=== PATIENT | female | born 1955 | race Caucasian/White ===

== ENCOUNTER → 2018-07-04 14:18 | Outpatient (CLI) | payer BC, SELFPAY ==
--- NOTE | 2018-07-04 | DI.RAD.S_ITS ---
PROCEDURE: XR ANKLE LT MIN 3V INDICATIONS: LEFT ankle and foot pain TECHNIQUE: 3 views of the ankle were acquired. COMPARISON: None. FINDINGS: Bones: No fractures or dislocations. Ankle mortise is normally aligned. No suspicious bony lesions. Well-defined plantar calcaneal enthesophyte is seen. Soft tissues: No tibiotalar joint effusion. Achilles tendon appears normal. Mild soft tissue swelling around ankle joint is seen. IMPRESSION: Mild ankle soft tissue swelling. No fracture or dislocation. Ankle mortise is intact. Dictated by: Syed Wright M.D. on 07/04/2018 at 15:39 Approved by: Syed Wright M.D. on 07/04/2018 at 15:45
--- NOTE | 2018-07-04 | DI.RAD.S_ITS ---
PROCEDURE: XR FOOT LT MIN 3V INDICATIONS: TWISTED ANKLE FOOT PAIN TECHNIQUE: 3 views of the foot were acquired. COMPARISON: None. FINDINGS: Bones: No fractures or dislocations. No suspicious bony lesions. Mild osteoarthritic changes throughout interphalangeal joints are seen. Small plantar calcaneal enthesophyte is seen. Soft tissues: No tibiotalar joint effusion. Achilles tendon appears normal. IMPRESSION: No acute left foot fracture or dislocation. Mild forefoot joint osteoarthritis. Dictated by: Syed Wright M.D. on 07/04/2018 at 15:45 Approved by: Syed Wright M.D. on 07/04/2018 at 15:47
== END ==
PROVIDERS: Visit Provider Internal Medicine Cardiovascular Disease
DX: M25.572 Pain in left ankle and joints of left foot (principal); S99.812A Other specified injuries of left ankle, initial encounter; M79.672 Pain in left foot; M25.472 Effusion, left ankle; M19.072 Primary osteoarthritis, left ankle and foot
CPT/HCPCS: 73610; 73630

== ENCOUNTER → 2019-12-09 14:42 | Outpatient (CLI) | payer OTHER, SELFPAY ==
[2019-12-09 15:14] LABS: Add Manual Diff / Slide Review NO; Basophils Absolute Auto 100 /uL (0-100); Basophils Percent Auto 1.1 % (0-2); Eosinophils Absolute Auto 100 /uL (0-450); Eosinophils Percent Auto 2.2 % (2-4); Hematocrit 41.3 % (36-46); Hemoglobin 14.3 g/dL (12.0-16.0); Lymphocytes Absolute Auto 1100 /uL (1100-4500); Lymphocytes Percent Auto 19.3 % (25-40); Mean Corpuscular HGB Conc 34.5 % (30-36); Mean Corpuscular Hemoglobin 30.9 PG (26-34); Mean Corpuscular Volume 89.5 fL (80-100); Monocytes Absolute Auto 300 /uL (0-900); Monocytes Percent Auto 5.4 % (3-14); Neutrophils Absolute Auto 4300 /uL (1500-7000); Platelet Count 204 X10^3/uL (150-400); Red Blood Cell Count 4.62 X10^6/uL (4.0-5.2); Red Cell Distribution Width 14.3 % (11.6-14.8); White Blood Cell Count 5.9 X10^3/uL (4.5-11.0)
[2019-12-09 15:30] LABS: Alanine Aminotransferase 29 IU/L (<35); Albumin 4.6 g/dL (3.5-5.0); Albumin Globulin Ratio 1.4 (1.0-2.8); Alkaline Phosphatase 107 U/L (38-126); Aspartate Aminotransferase 43 IU/L (14-36); Bilirubin Total 0.7 mg/dL (0.2-1.3); Blood Urea Nitrogen 21 mg/dL (7-17); Calcium 9.9 mg/dL (8.4-10.2); Carbon Dioxide 22 mmol/L (22-32); Chloride 102 mmol/L (98-107); Cholesterol 265 mg/dL (140-199); Estimated Glomerular Filt Rate 55.6 mL/min (>60); Globulin 3.2 g/dL (1.7-4.1); Glucose 234 mg/dL (80-110); HDL Cholesterol 46 mg/dL (40-60); HEMOLYSIS < 15 (0-50); LDL Cholesterol Calculated 152 mg/dL (<100); Potassium 4.6 mmol/L (3.4-5.1); Sodium 137 mmol/L (137-145); Total Protein 7.8 g/dL (6.3-8.2); Triglycerides 337 mg/dL (35-150)
[2019-12-09 16:20] LABS: TSH w/ Reflex to FT4 1.44 uIU/mL (0.47-4.68)
[2019-12-11 10:02] LABS: Hemoglobin A1C% w Est Avg Glu 9.4 % (4.0-6.0)
== END ==
PROVIDERS: PCP Student in an Organized Health Care Education/Training Program; Referring Provider Student in an Organized Health Care Education/Training Program; Visit Provider Student in an Organized Health Care Education/Training Program
DX: I10 Essential (primary) hypertension (principal); E03.9 Hypothyroidism, unspecified; E11.40 Type 2 diabetes mellitus with diabetic neuropathy, unspecified; E78.5 Hyperlipidemia, unspecified; E11.10 Type 2 diabetes mellitus with ketoacidosis without coma
CPT/HCPCS: 36415; 80053; 80061; 83036; 84443; 85025

== ENCOUNTER → 2020-03-11 14:20 | Outpatient (CLI) | payer OTHER, SELFPAY ==
--- NOTE | 2020-03-11 15:48 | DIET.PN ---
Diabetes Intake: Initial Assessment Assess: Ms. Loja is a 64 YOF referred for type 2 diabetes. She reports long standing hx (30yrs). She has been experiencing symptoms related to diabetes including fatigue, blurred vision, extreme peripheral neuropathy, mood swings. Her weight has been up and down for several years. She admits she does not believe diabetes is serious. She has tried changing her diet and exercising for weight loss and glucose control but gets discouraged with minimal results. She does not exercise due to chronic foot pain. She admits she does not follow healthful eating patterns consuming fast food breakfast sandwiches, often skipping lunch, eating whatever her father prepares for dinner and snacking on starchy/sugary foods in the evening. Labs: Per pt report: A1c: 9.4 FB Meds: repaglinide BID; lantus 50u am/pm; gabapentin for neuropathy Diet: per 24 hr recall: B: brkfst sandwich (fast food) L: none D: hot meal from home Evening Snks: chips, popcorn, candy Wt: 265lb Ht: 66in BMI: 42.8 DX: Altered nutrition related laboratory values related to impaired glucose metabolism, lack of previous exposure to nutrition information as evidenced by pt report, diagnosis of diabetes, previous diet high in refined carbohydrates. Intervention: 1. Completed intake assessment. Discussed barriers to care. 2. Discussed pathophysiology of diabetes. Reviewed A1c and its correlation to blood glucose numbers. Discussed recommended BG ranges. 3. Discussed importance of self-monitoring, how often, and when to check. 4. Reviewed hyper/hypoglycemia and treatment. 5. Provided ?snacking under 200 giovanna? list 6. Reviewed safe disposal of equipment (strip/lancets/insulin needles). 7. Created SMART goals for pt self-care and success. 8. Discussed program curriculum outline and class needs based on individual goals. SMART Goals: 1. Pt would like to lose 15lb (5% weight loss) in the next 3 mo through portion control, carb consistency, and increased physical activity. Monitor/Evaluate: Anticipate fair compliance. Pt will attend full DSME program. Basic Nutrition class scheduled for Mar 30. Pt authorized for 3 visits.
== END ==
PROVIDERS: PCP Student in an Organized Health Care Education/Training Program; Referring Provider Student in an Organized Health Care Education/Training Program; Visit Provider Student in an Organized Health Care Education/Training Program
DX: E11.9 Type 2 diabetes mellitus without complications (principal); Z79.4 Long term (current) use of insulin
CPT/HCPCS: G0108

== ENCOUNTER → 2020-05-25 14:16 | Outpatient (CLI) | payer OTHER, SELFPAY ==
--- NOTE | 2020-05-25 15:48 | DIET.PN ---
Diabetes: Healthy Eating 1 Intervention: ? Discussed pathophysiology of diabetes and impact of nutrition/diet on blood sugar control.? Discussed fed versus non-fed state.?? ? Reviewed importance of Balance, Variety, and Moderation. ? Discussed the effect of carbohydrates/protein/fat on blood sugar control.? ? Stressed importance of consistent carbohydrate intake at each meal and provided instructions for recommended servings/portions of carbohydrates/protein per meal. Provided educational material. ? Reviewed carbohydrate counting and measuring carbohydrate content via serving sizes and reading nutrition labels.? Provided handouts.?? ? Discussed the difference between simple versus complex carbohydrates and the effect of fiber on blood sugar control.? Discussed various methods to increase fiber content in diet. ? Discussed the plate method for creating more carbohydrate conscious balanced meals. ? Stressed importance of meal timing and not going >4-5 hours between meals. Encouraged adding protein to evening snack to support glucose control overnight. ? Discussed importance of making dietary habits part of lifestyle change.
== END ==
PROVIDERS: PCP Student in an Organized Health Care Education/Training Program; Referring Provider Student in an Organized Health Care Education/Training Program; Visit Provider Student in an Organized Health Care Education/Training Program
DX: E11.9 Type 2 diabetes mellitus without complications (principal); Z71.3 Dietary counseling and surveillance
CPT/HCPCS: G0109

== ENCOUNTER → 2020-06-03 14:23 | Outpatient (CLI) | payer OTHER, SELFPAY ==
--- NOTE | 2020-06-03 16:00 | DIET.PN ---
Diabetes: Healthy Eating 2 Intervention: Fats effects on glucose, weight, heart disease, cholesterol Sat Vs Unsat Protein- animal and plant based options Low, med, high fat meats Sugar substitutes Sodium Health claims Grocery shopping guidelines Eating away from home Alcohol Sick day guidelines Ketone Testing
== END ==
PROVIDERS: PCP Student in an Organized Health Care Education/Training Program; Referring Provider Student in an Organized Health Care Education/Training Program; Visit Provider Student in an Organized Health Care Education/Training Program
DX: E11.9 Type 2 diabetes mellitus without complications (principal); Z71.3 Dietary counseling and surveillance
CPT/HCPCS: G0109

== ENCOUNTER → 2021-10-31 14:51 | Outpatient (CLI) | payer OTHER, SELFPAY ==
--- NOTE | 2021-10-31 14:56 | DI.RAD.S_ITS ---
PROCEDURE: XR SHOULDER RT MIN 2V INDICATIONS: RIGHT SHOULDER PAIN TECHNIQUE: 3 views of the shoulder were acquired. COMPARISON: None. FINDINGS: Bones: No fractures or dislocations. No suspicious bony lesions. Visualized ribs appear intact. Moderate acromioclavicular and severe glenohumeral joint space narrowing with periarticular osteophyte formation. Soft tissues: No suspicious soft tissue calcifications. IMPRESSION: Moderate acromioclavicular and severe glenohumeral joint degeneration. Dictated by: Ruben Mckenzie [facility] Interpreted: Derick Flores MD on 10/31/2021 at 16:27 Transcribed by: YAMILETH on 10/31/2021 at 16:28 Approved by: Derick Flores M.D. on 10/31/2021 at 17:09
== END ==
PROVIDERS: PCP Student in an Organized Health Care Education/Training Program; Referring Provider Student in an Organized Health Care Education/Training Program; Visit Provider Student in an Organized Health Care Education/Training Program
DX: M25.511 Pain in right shoulder (principal); G89.29 Other chronic pain; M19.011 Primary osteoarthritis, right shoulder
CPT/HCPCS: 73030

== ENCOUNTER → 2022-06-01 15:46 | Outpatient (CLI) | payer OTHER, SELFPAY ==
--- NOTE | 2022-06-01 15:47 | DI.MG.S_ITS ---
BILATERAL DIGITAL SCREENING MAMMOGRAM 3D/2D WITH CAD POST LUMPECTOMY: 06/01/2022 CLINICAL: Baseline exam. Routine screening. Personal history of left breast cancer. No prior exams were available for comparison. There are scattered areas of fibroglandular density in both breasts (category b / 25%-50% glandular tissue). Current study was also evaluated with a Computer Aided Detection (CAD) system. There is a round high density asymmetry with a spiculated margin in the left breast anterior depth superior region seen on the mediolateral oblique view only. No other significant masses, calcifications, or other findings are seen in either breast. IMPRESSION: INCOMPLETE: NEEDS ADDITIONAL IMAGING EVALUATION The round high density asymmetry in the left breast is indeterminate. Additional views with possible ultrasound are recommended. This exam was interpreted at Station ID: [id number]. NOTE: For mammograms, a report in lay terms will be sent to the patient. Approximately 15% of breast malignancies will not be visualized mammographically. In the management of a palpable breast mass, a negative mammogram must not discourage biopsy of a clinically suspicious lesion. Electronically Signed By: Edelmira zelaya/danay:06/01/2022 18:22:00 letter sent: Additional Imaging Needed ACR BI-RADS Category 0: Incomplete 3340F
== END ==
PROVIDERS: PCP Student in an Organized Health Care Education/Training Program; Referring Provider Student in an Organized Health Care Education/Training Program; Visit Provider Student in an Organized Health Care Education/Training Program
DX: Z12.31 Encounter for screening mammogram for malignant neoplasm of breast (principal); Z85.3 Personal history of malignant neoplasm of breast
CPT/HCPCS: 77063; 77067

== ENCOUNTER → 2022-07-20 10:33 | Outpatient (CLI) | payer OTHER, SELFPAY ==
--- NOTE | 2022-07-20 | DI.US.S_ITS ---
ULTRASOUND OF LEFT BREAST: 07/20/2022 CLINICAL: Patient returns today to evaluate a focal asymmetry in the left breast. Comparison is made to exams dated: 07/20/2022 mammogram and 06/01/2022 mammogram - [facility]. Color flow and real-time ultrasound of the left breast were performed. Harman scale images of the real-time examination were reviewed. No mass or other sonographic abnormality. IMPRESSION: PROBABLY BENIGN No ultrasound correlate for the asymmetry in the left breast, which mostly dissipated with spot compression. This is likely attributable to superimposed fibroglandular tissue. A follow-up mammogram in 6 months is recommended to demonstrate stability. This exam was interpreted at Station ID: [id number]. Electronically Signed By: Jose Mejia M.D. jr/:07/20/2022 13:03:35 letter sent: Followup Recommended Ultrasound BI-RADS: 3 Probably benign
--- NOTE | 2022-07-20 | DI.MG.S_ITS ---
UNILATERAL LEFT DIGITAL DIAGNOSTIC MAMMOGRAM 3D/2D WITH ADDITIONAL VIEWS POST LUMPECTOMY: 07/20/2022 CLINICAL: Additional evaluation requested from prior study. Comparison is made to exam dated: 06/01/2022 mammogram - [facility]. There are scattered areas of fibroglandular density in the left breast (category b / 25%-50% glandular tissue). There is a round high density asymmetry in the left breast anterior depth superior region seen on the mediolateral oblique view only. This is seen in additional views. This is less prominent. No other significant masses or calcifications are seen in the breast. IMPRESSION: INCOMPLETE: NEEDS ADDITIONAL IMAGING EVALUATION The round high density asymmetry in the left breast is decreased in conspicuity with spot compression. An ultrasound is recommended. This exam was interpreted at Station ID: [id number]. NOTE: For mammograms, a report in lay terms will be sent to the patient. Approximately 15% of breast malignancies will not be visualized mammographically. In the management of a palpable breast mass, a negative mammogram must not discourage biopsy of a clinically suspicious lesion. Electronically Signed By: Jose Mejia M.D. jr/:07/20/2022 13:02:30 ACR BI-RADS Category 0: Incomplete [id number]
== END ==
PROVIDERS: PCP Student in an Organized Health Care Education/Training Program; Referring Provider Student in an Organized Health Care Education/Training Program; Visit Provider Student in an Organized Health Care Education/Training Program
DX: R92.8 Other abnormal and inconclusive findings on diagnostic imaging of breast (principal); N64.89 Other specified disorders of breast
CPT/HCPCS: 76642; 77065; G0279

== ENCOUNTER → 2023-07-19 13:18 | Outpatient (CLI) | payer OTHER, SELFPAY ==
--- NOTE | 2023-07-19 | DI.RAD.S_ITS ---
PROCEDURE: XR TOE RT MIN 2V INDICATIONS: Toshia Kay TECHNIQUE: 3 views of the 1st toe(s) acquired. COMPARISON: None. FINDINGS: Bones: Generalized decreased osseous mineralization noted. Oblique fracture through the base of the 1st distal phalanx extends to the interphalangeal joint. No displacement Soft tissues: No suspicious soft tissue densities. IMPRESSION: Oblique nondisplaced fracture, base of the 1st distal phalanx Approved by: Dominick Fry M.D. on 07/19/2023 at 20:01
== END ==
PROVIDERS: PCP Student in an Organized Health Care Education/Training Program; Referring Provider Physician Assistant; Visit Provider Physician Assistant
DX: S92.424A Nondisplaced fracture of distal phalanx of right great toe, initial encounter for closed fracture (principal); X58.XXXA Exposure to other specified factors, initial encounter
CPT/HCPCS: 73660

== ENCOUNTER → 2023-08-20 13:13 | Outpatient (CLI) | payer OTHER, SELFPAY ==
--- NOTE | 2023-08-20 13:14 | DI.MG.S_ITS ---
BILATERAL DIGITAL DIAGNOSTIC MAMMOGRAM 3D/2D POST LUMPECTOMY: 08/20/2023 CLINICAL: Short term follow up of the left breast, due for bilateral imaging. Comparison is made to exams dated: 07/20/2022 mammogram and 06/01/2022 mammogram - [facility]. There are scattered areas of fibroglandular density in both breasts (category b / 25%-50% glandular tissue). The round asymmetry in the left breast middle depth superior region previously seen on the mediolateral oblique view only is no longer seen. No other significant masses, calcifications, or other findings are seen in either breast. IMPRESSION: BENIGN There is no mammographic evidence of malignancy. Return to annual mammogram screening schedule is recommended. This exam was interpreted at Station ID: [id number]. NOTE: For mammograms, a report in lay terms will be sent to the patient. Approximately 15% of breast malignancies will not be visualized mammographically. In the management of a palpable breast mass, a negative mammogram must not discourage biopsy of a clinically suspicious lesion. Electronically Signed By: Ynes kramer/:08/20/2023 13:55:25 letter sent: Normal Exam ACR BI-RADS Category 2: Benign Finding(s) 3342F
== END ==
LOC: MAMMO 13:14
PROVIDERS: PCP Student in an Organized Health Care Education/Training Program; Referring Provider Student in an Organized Health Care Education/Training Program; Visit Provider Student in an Organized Health Care Education/Training Program
DX: R92.8 Other abnormal and inconclusive findings on diagnostic imaging of breast (principal); R92.323 Mammographic fibroglandular density, bilateral breasts
CPT/HCPCS: 77066; G0279

== ENCOUNTER 2023-10-11 07:57 | Day surgery (SDC) | payer MEDICARE, SELFPAY ==
--- NOTE | 2023-10-11 | PATH_ITS ---
[facility] Accession Number: [id number] No. of containers..01 Tissue . 01 Material submitted: . colon - TRANSVERSE COLON POLYP . 01 Diagnosis: TRANSVERSE COLON POLYP: Tubular adenoma. STO 10/16/2023 0942 Local . 01 Electronically signed: . Fabrizio Chaparro MD, Pathologist NPI- [id number] . 01 Gross description: . TRANSVERSE COLON POLYP: Received in formalin is 1 fragment(s) of moreno, soft tissue measuring 1.0 x 0.6 x 0.6 cm submitted entirely in 1 cassette(s) /ABELARDO 10/16/202342 Local . 01 Pathologist provided ICD-10: D12.3 . 01 CPT . 018502 Specimen Comment: A courtesy copy of this report has been sent to [phone] Performed at: 01 [facility] [address] [place] [id number] MD Fabrizio Chaparro MD Phone: [phone]
[2023-10-11] MEDS: LACTATED RINGERS 1,000 ML 42 ML IV (08:07)
[2023-10-11 08:26] VITALS: BP 131/76; PULSE 94; RESP 20; TEMP 36.6; O2SAT 96
--- NOTE | 2023-10-11 08:37 | PM.HP.1 ---
History of Present Illness History of Present Illness Date Patient Seen: 10/11/23 Time Patient Seen: 08:37 Chief complaint: Screening Colonoscopy Narrative: Domi is a 67-year-old woman with a history of anal cancer. Her last colonoscopy was approximately 8 years ago. No family history of colon cancer. [facility] Medical History (Updated 10/11/23 @ 08:38 by Andrew Duran MD) History of breast cancer History of anal cancer Hyperlipidemia Neuropathy Hypertension Diabetes Surgical History (Updated 03/04/20 @ 07:22 by Raquel Lee MD) [place] teeth extracted Status post tubal ligation Status post left breast lumpectomy Hx laparoscopic cholecystectomy Status post tonsillectomy and adenoidectomy Social History Smoking Status: Never smoker alcohol intake: never eating out: 4 or more times/week Type(s) of exercise: none Meds Home Medications and Allergies Home Medications Medication Instructions Recorded Confirmed Type aspirin 81 mg tablet,delayed 81 mg PO DAILY 03/03/20 10/11/23 History release bupropion HCl 150 mg tablet,12 hr 150 mg PO BID 03/03/20 10/11/23 History sustained-release cholecalciferol (vitamin D3) 25 25 mcg PO DAILY 03/03/20 10/11/23 History mcg (1,000 unit) capsule diltiazem HCl 300 mg capsule,24 300 mg PO DAILY 03/03/20 10/11/23 History hr,extended release escitalopram oxalate 20 mg tablet 20 mg PO DAILY 03/03/20 10/11/23 History gabapentin 600 mg tablet 600 mg PO DAILY 03/03/20 10/11/23 History insulin glargine 100 unit/mL (3 50 unit SUBCUT DAILY 03/03/20 10/11/23 History mL) subcutaneous pen (Lantus Solostar U-100 Insulin) magnesium oxide 400 mg PO DAILY 03/03/20 10/11/23 History multivitamin 1 tab PO DAILY 03/03/20 10/11/23 History omega-3 fatty acids-fish oil 360 1 cap PO DAILY 03/03/20 10/11/23 History mg-1,200 mg capsule (Fish Oil) repaglinide 1 mg tablet 1 mg PO BID 03/03/20 10/11/23 History rosuvastatin 10 mg tablet 10 mg PO DAILY 03/03/20 10/11/23 History vitamin E 200 unit capsule 200 unit PO DAILY 03/03/20 03/03/20 History Allergies Allergy/AdvReac Type Severity Reaction Status Date / Time codeine Allergy Verified 10/11/23 08:11 Penicillins Allergy Verified 10/11/23 08:11 Exam Vital Signs (past 8 hours): - 10/11/23 08:26 Temperature 98 F Pulse Rate 94 H Respiratory Rate 20 Blood Pressure 131/76 Pulse Oximetry 96 Oxygen Delivery Method Room Air Oxygen Delivery Method Room Air Const General: No acute distress Resp Effort & Inspection: normal respiratory effort Assessment & Plan Assessment and plan (1) History of anal cancer: Status: Acute Plan We reviewed the risks and benefits of colonoscopy for colon cancer screening and history of anal cancer. She would like to proceed.
--- NOTE | 2023-10-11 09:50 | PM.OP.COLON ---
Operative Date/Time/Diagnoses Date of procedure: 10/11/23 Time of procedure: 09:50 Pre-op diagnosis: Colon cancer screening Post-op diagnosis: same Procedure & Clinicians Study performed: Colonoscopy Same procedure as scheduled: Yes Surgeon: Andrew Duran Procedure Notes Procedure in detail: Surgeon: Andrew Duran MD Anesthesia: Glendy Cruz CRNA Procedure: The patient was brought to the endoscopy suite, placed in left lateral decubitus position. The patient was connected to monitoring devices. A time-out was performed. Sedation was administered. Once the patient was adequately sedated, a digital rectal exam was performed and was normal. The scope was then inserted and advanced to the cecum where the appendiceal orifice was identified and photographed. The scope was then slowly withdrawn over greater than 6 minutes. The mucosa was thoroughly inspected. There was a 1 cm polyp in the proximal transverse colon removed with a cold snare. A single hemostatic clip was applied with good effect. The scope was retroflexed in the rectum. No other abnormalities were seen. The scope was straightened and removed. The patient was awakened and brought to recovery. Scope withdrawal time: 13 minutes Sedation time: 27 minutes EBL: 5 mL Findings: 1 cm polyp in the proximal transverse colon Post-procedure Disposition: PACU
[2023-10-11 09:52] VITALS: BP 113/70; PULSE 87; RESP 16; TEMP 36.1; O2SAT 98
[2023-10-11 09:57] VITALS: BP 125/80; PULSE 86; RESP 17; O2SAT 98
[2023-10-11 10:02] VITALS: BP 140/86; PULSE 86; RESP 14; O2SAT 100
[2023-10-11 10:07] VITALS: BP 135/73; PULSE 87; RESP 12; O2SAT 100
[2023-10-11] MEDS: ONDANSETRON 4 MG/2 ML INJ IV (10:07)
[2023-10-11 10:12] VITALS: BP 151/87; PULSE 86; RESP 12; TEMP 36.2; O2SAT 100
== END 2023-10-11 10:32 | disposition home or self-care (01) ==
PROVIDERS: PCP Student in an Organized Health Care Education/Training Program; Referring Provider Surgery; Visit Provider Surgery
PROC: 0DJD8ZZ Inspection of Lower Intestinal Tract, Via Natural or Artificial Opening Endoscopic (ICD-10-PCS; CPT 45378; principal; 2023-10-11 09:00)
DX: Z12.11 Encounter for screening for malignant neoplasm of colon (principal); Z85.048 Personal history of other malignant neoplasm of rectum, rectosigmoid junction, and anus; D12.3 Benign neoplasm of transverse colon
CPT/HCPCS: 45385; J2405; J2704

== ENCOUNTER → 2023-11-06 14:34 | Outpatient (CLI) | payer MEDICARE, SELFPAY ==
--- NOTE | 2023-11-06 14:34 | DI.RAD.S_ITS ---
PROCEDURE: XR DEXA AXIAL SKELETON INDICATIONS: Unspecified menopausal and perimenopausal disorder COMPARISON: None. FINDINGS: Lumbar Spine: Bone mineral density 0.932 g/cm2, T score -1.0. Left Hip: Bone mineral density 0.697 g/cm2, T score -2.0. Left Femoral Neck: Bone mineral density 0.560 g/cm2, T score -2.6. Right Hip: Bone mineral density 0.622 g/cm2, T score -2.6. Right Femoral Neck: Bone mineral density 0.598 g/cm2, T score -2.3. Fracture Risk Calculation (when applicable): FRAX not provided due to osteoporosis. (T score greater or equal to -1.0 to: NORMAL) (T score from -1.1 to -2.4: OSTEOPENIA) (T score less than or equal to -2.5: OSTEOPOROSIS) IMPRESSION: Osteoporosis. Dictated by: Onofre Funez M.D. on 11/08/2023 at 11:12 Approved by: Onofre Funez M.D. on 11/08/2023 at 11:14
== END ==
LOC: RAD 14:34
PROVIDERS: PCP Student in an Organized Health Care Education/Training Program; Referring Provider Student in an Organized Health Care Education/Training Program; Visit Provider Student in an Organized Health Care Education/Training Program
DX: M81.0 Age-related osteoporosis without current pathological fracture (principal); N95.9 Unspecified menopausal and perimenopausal disorder
CPT/HCPCS: 77080

== ENCOUNTER → 2025-02-03 14:55 | Outpatient (CLI) | payer MEDICARE, SELFPAY ==
--- NOTE | 2025-02-03 14:57 | DI.RAD.S_ITS ---
PROCEDURE: XR FOOT RT MIN 3V INDICATIONS: pain top of foot. fell 1 month ago TECHNIQUE: 3 views of the foot were acquired. COMPARISON: [facility], CR, XR FOOT LT MIN 3V, 07/04/2018, 14:33. FINDINGS: Bones: Severe hammertoe deformities 2nd through 5th digits. Joints: Moderate degenerative change all interphalangeal and MTT joints. Lateral subluxation of the 2nd metatarsal base with respect to the central cuneiform suggest a Lisfranc fracture dislocation Soft tissues: No soft tissue abnormality. IMPRESSION: Probable subtle Lisfranc fracture dislocation. History of trauma with midfoot pain acknowledged. Suggest foot CT. Other chronic findings as described Dictated by: Darron Davila M.D. on 02/04/2025 at 11:47 Approved by: Darron Davila M.D. on 02/04/2025 at 11:50
== END ==
PROVIDERS: PCP Student in an Organized Health Care Education/Training Program; Referring Provider Family Medicine; Visit Provider Family Medicine
DX: S90.31XA Contusion of right foot, initial encounter (principal); M20.41 Other hammer toe(s) (acquired), right foot; W19.XXXA Unspecified fall, initial encounter
CPT/HCPCS: 73630